=== PATIENT | female | born 1995 | race Two or more races ===

== ENCOUNTER 2021-09-19 20:09 | Emergency (ER) | payer MEDICAID ==
[~2021-09-19] VITALS: Ht 162.6 cm; Wt 83.1 kg
[2021-09-19] MEDS ORDERED: METH4PAK PO (21:15)
[2021-09-19 23:15] VITALS: BP 114/67
== END 2021-09-19 23:26 | disposition home or self-care (01) ==
LOC: ER 20:09
DX: G51.0 Bell's palsy (principal); Z79.899 Other long term (current) drug therapy
CPT/HCPCS: 70450; 81025